=== PATIENT | male | born 1985 | race Caucasian/White ===

== ENCOUNTER 2018-06-22 18:01 | Emergency (ER) | payer OTHER, SELFPAY ==
[2018-06-22 18:02] VITALS: BP 137/91; PULSE 76; RESP 20; TEMP 36.5; O2SAT 98; BMI 33.9
--- NOTE | 2018-06-22 18:44 | ED_ITS ---
HPI - Back Pain/Injury <JODY Alvarenga Last Filed: 06/22/18 21:58> General Chief Complaint: Back Pain/Injury Stated Complaint: tweaked lower right back Time Seen by Provider: 06/22/18 18:44 Source: patient and family Mode of arrival: ambulatory Limitations: no limitations History of Present Illness HPI Narrative: This 33-year-old gentleman complains of right low back pain, onset mid morning. He states that he bent down to lift an empty box from the floor and felt a pain, spasm type of sensation in his right low back. He states that he has tried stretching, Aleve, lying flat and child's pose, but still has constant pain with intermittent sensation of spasm. He states that the pain is constant, but better when sitting straight and still, worse with twisting, trying to take big steps or other movements. He denies any other trauma. He denies any weakness or paresthesia in the extremities. He denies any new bowel or bladder dysfunction. He denies any urinary symptoms or hematuria. No fever, rash or other new symptoms on systems review Related Data Previous Rx's Medication Instructions Recorded diazepam [Valium] 5 mg PO Q8H PRN #8 tab 06/22/18 meloxicam [Mobic] 15 mg PO DAILY #14 tab 06/22/18 Allergies Allergy/AdvReac Type Severity Reaction Status Date / Time fluconazole [FLUCONAZOLE] Allergy Unknown Unverified 02/13/18 12:35 Review of Systems <JODY Alvarenga Last Filed: 06/22/18 21:58> Review of Systems All systems reviewed & are unremarkable except as noted in HPI and below PFSH <JODY Alvarenga Last Filed: 06/22/18 21:58> Comment: Rare EtOH, no street drugs Exam <JODY Alvarenga Last Filed: 06/22/18 21:58> Initial Vital Signs Initial Vital Signs: Vital Signs Temperature 97.7 F 06/22/18 18:02 Pulse Rate 76 06/22/18 18:02 Respiratory Rate 20 06/22/18 18:02 Blood Pressure 137/91 H 06/22/18 18:02 Pulse Oximetry 98 06/22/18 18:02 GENERAL APPEARANCE: Patient sitting straight, appears mildly uncomfortable, in NAD PULMONARY: Lungs clear to auscultation bilaterally CV: Regular rhythm regular without murmur, normal S1 and S2, no S3 or S4 MUSCULOSKELETAL: No point tenderness over the lumbar spine or sacral spine. Limited trunk range of motion in all bey secondary to tenderness. He has moderate tenderness over the right sacroiliac joint and surrounding musculature. Lower extremity strength 5/5 bilateral hip flexors, knee extensors , foot plantar flexion. Negative modified straight leg raise NEUROLOGIC: Bilateral patellar and Achilles DTRs 2+ DERMATOLOGIC: No exanthem <Nixon Bragg DO - Last Filed: 06/22/18 22:09> Initial Vital Signs Initial Vital Signs: Vital Signs Temperature 97.7 F 06/22/18 18:02 Pulse Rate 76 06/22/18 18:02 Respiratory Rate 20 06/22/18 18:02 Blood Pressure 137/91 H 06/22/18 18:02 Pulse Oximetry 98 06/22/18 18:02 Course <Marilia Gómez PA-C - Last Filed: 06/22/18 21:58> Additional Information: Patient is feeling significantly improved prior to discharge, able to stand and ambulate comfortably on his own. Orders Ordered: Discontinued Medications Hydrocodone Bitart/Acetaminophen (Mears 5/325) 1 tab PO NOW ONE Stop: 06/22/18 19:07 Last Admin: 06/22/18 19:45 Dose: 1 tab Hydrocodone Bitart/Acetaminophen (Vicodin Prepack) 1 bottle MISC SEEINSTR ONE Stop: 06/22/18 21:08 Last Admin: 06/22/18 21:13 Dose: 1 bottle Diazepam (Valium) 5 mg PO NOW ONE Stop: 06/22/18 19:07 Last Admin: 06/22/18 19:45 Dose: 5 mg Ketorolac Tromethamine (Toradol) 60 mg IM NOW ONE Stop: 06/22/18 19:07 Last Admin: 06/22/18 19:45 Dose: 60 mg Vital Signs - 8 hr 06/22/18 18:02 06/22/18 21:09 Temperature 97.7 F 98.1 F Pulse Rate 76 60 Respiratory Rate 20 16 Blood Pressure 137/91 H Blood Pressure [Right Arm] 122/80 H Pulse Oximetry 98 99 <DO Tacho James Last Filed: 06/22/18 22:09> Orders Ordered: Discontinued Medications Hydrocodone Bitart/Acetaminophen (Mears 5/325) 1 tab PO NOW ONE Stop: 06/22/18 19:07 Last Admin: 06/22/18 19:45 Dose: 1 tab Hydrocodone Bitart/Acetaminophen (Vicodin Prepack) 1 bottle MISC SEEINSTR ONE Stop: 06/22/18 21:08 Last Admin: 06/22/18 21:13 Dose: 1 bottle Diazepam (Valium) 5 mg PO NOW ONE Stop: 06/22/18 19:07 Last Admin: 06/22/18 19:45 Dose: 5 mg Ketorolac Tromethamine (Toradol) 60 mg IM NOW ONE Stop: 06/22/18 19:07 Last Admin: 06/22/18 19:45 Dose: 60 mg Vital Signs - 8 hr 06/22/18 18:02 06/22/18 21:09 Temperature 97.7 F 98.1 F Pulse Rate 76 60 Respiratory Rate 20 16 Blood Pressure 137/91 H Blood Pressure [Right Arm] 122/80 H Pulse Oximetry 98 99 Discharge Plan Departure Patient Disposition: Home Clinical Impression: Low back sprain, Muscle spasm Discharge Date/Time: 06/22/18 21:20 Interventions: ED Discharge Assessment Last Done: 06/22/18 21:20 Instructions: DI for Low Back Pain Activity Restrictions/Additional Instructions: You should return as we talked about if you have any acutely worsening symptoms , such as fever, bowel or bladder difficulties, or weakness in your extremities. Otherwise, please start the prescription anti-inflammatory meloxicam (do not take ibuprofen or Aleve) tomorrow. I have also sent in a prescription for some diazepam, which helped with your muscle spasms tonight. You can take this over the next few days as needed, but please do not drive as this could make you sleepy. I sent you home with a few of the pain pills ( hydrocodone/acetaminophen) that we gave you here if you need to take them over the next day or so. You should not be driving while using these either due to possible sleepiness. Thank you for your service! Prescriptions: New diazepam [Valium] 5 mg tablet 5 mg PO Q8H PRN (Reason: muscle spasm) Qty: 8 RF: 0 meloxicam [Mobic] 15 mg tablet 15 mg PO DAILY Qty: 14 RF: 0 Referrals: [facility] [Provider Group] <Nixon Bragg, DO - Last Filed: 06/22/18 22:09> Cosign ED Attending Adature Attestation: I was available for consultation during this patient's emergency department encounter
[2018-06-22] MEDS: HYDROCODONE/ACET 5/325 TABLET 1 TAB PO (19:45)
[2018-06-22] MEDS: diazePAM 5 MG TABLET PO (19:45)
[2018-06-22] MEDS: KETOROLAC 60 MG/2 ML VIAL IM (19:45)
--- NOTE | 2018-06-22 20:01 | PC.NURSE ---
ketorolac IM injection given in the left gluteus myrna. patient tolerated well.
[2018-06-22 21:09] VITALS: BP 122/80; PULSE 60; RESP 16; TEMP 36.7; O2SAT 99
[2018-06-22] MEDS: HYDROCODONE/ACET 5/325 PREPACK 1 BOTTLE MISC (21:13)
== END 2018-06-22 21:20 | disposition home or self-care (01) ==
PROVIDERS: Emergency Provider Internal Medicine
DX: S33.5XXA Sprain of ligaments of lumbar spine, initial encounter (principal); M62.838 Other muscle spasm; T73.3XXA Exhaustion due to excessive exertion, initial encounter
CPT/HCPCS: 96372; 99282; 99283; J1885